=== PATIENT | female | born 1995 | race Caucasian/White ===

== ENCOUNTER 2018-10-21 10:59 | Emergency (ER) | payer OTHER ==
[~2018-10-21] VITALS: Ht 149.9 cm; Wt 93.4 kg
[~2018-10-21 10:59] MED LIST: CALCITRIOL0.5 MCG PO; MELATONIN10 MG PO; SYNTHROID150 MCG PO; TAPAZOLE5 M1 PO; ZOLOFT50 MG PO
== END 2018-10-21 15:28 | disposition home or self-care (01) ==
LOC: ER 10:59
DX: S10.81XA Abrasion of other specified part of neck, initial encounter (principal); X58.XXXA Exposure to other specified factors, initial encounter; E89.0 Postprocedural hypothyroidism; Y93.89 Activity, other specified; Y92.89 Other specified places as the place of occurrence of the external cause; Y99.8 Other external cause status